=== PATIENT | female | born 1995 | race Two or more races ===

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

== ENCOUNTER 2017-03-16 17:01 | Emergency (ER) | payer MEDICAID ==
[~2017-03-16] VITALS: Ht 157.5 cm; Wt 45.4 kg
[2017-03-16 18:37] LABS: Basophils # (auto) 0 uL; Eosinophils # (auto) 0 uL; Hemoglobin 11.7 g/dL (12.2-16.2); Monocytes # (auto) 1.2 uL; Neutrophils # (auto) 12.2 uL
[2017-03-16 18:39] LABS: Basophils % (auto) 0.1 % (0.0-2.0); Hematocrit 35.3 % (36.0-46.0); Lymphocytes # (auto) 1.3 uL; Lymphocytes % (auto) 8.6 % (10.0-50.0); Mean Corpuscular Hemoglobin 27.1 pg (28.0-32.0); Mean Corpuscular Hgb Conc. 33.1 g/dL (32.0-36.0); Mean Corpuscular Volume 81.7 fL (80.0-100.0); Mean Platelet Volume 8.3 fL (6.9-10.8); Monocytes % (auto) 8.2 % (0.0-12.0); Neutrophils % (auto) 83.1 % (37.0-80.0); Platelet Count (auto) 288 10^3/uL (140-450); Red Cell Distribution Width 14.5 % (11.8-14.3); White Blood Cell 14.7 10^3/uL (4.4-10.8)
[2017-03-16 19:02] LABS: BUN/Creatinine Ratio 14.4; Potassium 3.2 mmol/L (3.5-5.1)
[2017-03-16] MEDS ORDERED: SODIUM CHLORIDE 0.9% 1,000 ML IV ONE (23:45)
[2017-03-16] MEDS ORDERED: HYDROmorphone HCL 2 MG/ML VL IV ONE (23:45)
[2017-03-16] MEDS ORDERED: ONDANSETRON HCL 4 MG/2 ML VIAL IV ONE (23:45)
[2017-03-17] MEDS ORDERED: cefTRIAXone 1GM/50ML D5W 50 ML IV ONE (01:30)
[2017-03-17] MEDS ORDERED: HYDROmorphone HCL 2 MG/ML VL IV ONE (01:30)
[2017-03-17] MEDS ORDERED: ONDANSETRON HCL 4 MG/2 ML VIAL IV ONE (01:30)
[2017-03-17] MEDS ORDERED: SODIUM CHLORIDE 0.9% 1,000 ML IV ONE (01:30)
[2017-03-17 01:34] LABS: Urine Bilirubin Negative (Negative); Urine Blood 2+ /uL (Negative); Urine Color Yellow (Yellow); Urine Glucose Normal (Normal); Urine Ketone 1+ (Negative); Urine Mucus FEW (None Seen); Urine Nitrite Negative (Negative); Urine RBC 34 /hpf (0 - 4); Urine Squamous Epithelial Cell MOD /hpf (<5); Urine WBC Clumps PRESENT /hpf (None Seen)
[2017-03-17 02:57] VITALS: BP 95/54
== END 2017-03-17 03:00 | disposition home or self-care (01) ==
LOC: ER 17:01
DX: N20.0 Calculus of kidney (principal); N39.0 Urinary tract infection, site not specified
CPT/HCPCS: 36415; 74176; 80048; 81001; 84702; 85025; 96361; 96365; 96375; 96376; 99285; J0696; J1170; J2405; J7030

== ENCOUNTER 2017-03-20 22:48 | Emergency (ER) | payer MEDICAID ==
[~2017-03-20] VITALS: Ht 157.5 cm; Wt 45.4 kg
[2017-03-20 23:05] VITALS: BP 115/62
[2017-03-20 23:33] LABS: Urine Bilirubin Negative (Negative); Urine Blood 1+ /uL (Negative); Urine Color Yellow (Yellow); Urine Glucose Normal (Normal); Urine Ketone Negative (Negative); Urine Mucus FEW (None Seen); Urine Nitrite Negative (Negative); Urine RBC 5 /hpf (0 - 4); Urine Squamous Epithelial Cell MOD /hpf (<5); Urine Urobilinogen Normal (Negative)
[2017-03-20 23:52] LABS: Basophils # (auto) 0 uL; Eosinophils # (auto) 0.1 uL; Hemoglobin 10.7 g/dL (12.2-16.2); Mean Platelet Volume 7.6 fL (6.9-10.8)
[2017-03-20 23:54] LABS: Basophils % (auto) 0.1 % (0.0-2.0); Eosinophils % (auto) 0.5 % (0.0-7.0); Hematocrit 33.5 % (36.0-46.0); Lymphocytes # (auto) 1.5 uL; Lymphocytes % (auto) 10.7 % (10.0-50.0); Mean Corpuscular Hemoglobin 26.2 pg (28.0-32.0); Mean Corpuscular Hgb Conc. 32.1 g/dL (32.0-36.0); Mean Corpuscular Volume 81.6 fL (80.0-100.0); Monocytes # (auto) 0.5 uL; Monocytes % (auto) 3.8 % (0.0-12.0); Neutrophils % (auto) 84.9 % (37.0-80.0); Platelet Count (auto) 282 10^3/uL (140-450); Red Cell Distribution Width 14.5 % (11.8-14.3); White Blood Cell 14.1 10^3/uL (4.4-10.8)
[2017-03-21 00:13] LABS: BUN/Creatinine Ratio 8.8; Calcium 8.7 mg/dL (8.5-10.1); Potassium 3.6 mmol/L (3.5-5.1)
[2017-03-21] MEDS ORDERED: HYDROmorphone HCL 2 MG/ML VL IV ONE (00:30)
[2017-03-21] MEDS ORDERED: SODIUM CHLORIDE 0.9% 1,000 ML IV ONE ×2 (00:30→02:15)
[2017-03-21] MEDS ORDERED: ONDANSETRON HCL 4 MG/2 ML VIAL IV ONE (00:30)
[2017-03-21] MEDS ORDERED: MAGNESIUM CITRATE SOLUTION 300 ML BTL PO ONE (01:45)
[2017-03-21] MEDS ORDERED: LACTULOSE 20Gm/30ML SOLN PO ONE (01:45)
== END 2017-03-21 03:13 | disposition home or self-care (01) ==
LOC: ER 22:51
DX: K59.00 Constipation, unspecified (principal); D72.829 Elevated white blood cell count, unspecified; Z87.442 Personal history of urinary calculi
CPT/HCPCS: 36415; 74176; 80048; 81001; 81025; 83690; 84702; 85025; 96361; 96374; 96375; 99285; J1170; J2405; J7030

== ENCOUNTER 2018-05-21 12:35 | Observation (INO) | payer MEDICAID ==
[~2018-05-21] VITALS: Ht 30.5 cm; Wt 0.5 kg
[2018-05-21] MEDS ORDERED: LACTATED RINGER'S 1,000 ML IV SCH (13:20)
[2018-05-21] MEDS ORDERED: PREN-153 OR (13:25)
[2018-05-21] MEDS ORDERED: TERBUTALINE SULFATE 1 MG/ML 1ML VIAL SC ONE ×2 (13:28→13:30)
[2018-05-21] MEDS ORDERED: TERBUTALINE SULFATE 1 MG/ML 1ML VIAL SC SCH (13:30)
== END 2018-05-21 15:00 | disposition home or self-care (01) | DRG 566 ==
LOC: LDRP 12:35
PROVIDERS: ADMIT Obstetrics & Gynecology; ATTEND Obstetrics & Gynecology
DX: O26.892 Other specified pregnancy related conditions, second trimester (principal); R50.9 Fever, unspecified; R10.30 Lower abdominal pain, unspecified; R19.7 Diarrhea, unspecified; O21.2 Late vomiting of pregnancy; Z3A.25 25 weeks gestation of pregnancy
CPT/HCPCS: 59025; 81002; 96360; 96372; G0378; J3105; 96366

== ENCOUNTER 2020-11-29 21:09 | Emergency (ER) | payer MEDICAID ==
[~2020-11-29] VITALS: Ht 157.5 cm; Wt 59.0 kg
[~2020-11-29 21:09] MED LIST changes: +PREN1TAB71 OR
[2020-11-29 23:58] LABS: Basophils # (auto) 0 10 ^3/uL (0-0.2); Basophils % (auto) 0.2 % (0.0-2.0); Eosinophils # (auto) 0 10 ^3/uL (0-0.8); Hematocrit 38.3 % (36.0-46.0); Lymphocytes # (auto) 1.5 10 ^3/uL (0.4-5.4); Mean Corpuscular Hemoglobin 28.2 pg (28.0-32.0); Monocytes # (auto) 0.6 10 ^3/uL (0-1.3); Monocytes % (auto) 6.5 % (0.0-12.0); Neutrophils # (auto) 7.2 10 ^3/uL (1.6-8.6); Neutrophils % (auto) 77.3 % (37.0-80.0); Red Blood Cells 4.61 10^6/uL (4.0-5.20); Red Cell Distribution Width 13.9 % (11.8-14.3); White Blood Cell 9.4 10^3/uL (4.4-10.8)
[2020-11-30 00:18] LABS: Calcium 8.2 mg/dL (8.5-10.1); Potassium 3.5 mmol/L (3.5-5.1)
[2020-11-30 00:21] LABS: Albumin 3.6 g/dL (3.4-5.0); BUN/Creatinine Ratio 8.1
[2020-11-30 00:24] LABS: Bilirubin, Total 0.2 mg/dL (0.2-1.0); Total Protein 8.3 g/dL (6.4-8.2)
[2020-11-30 05:08] LABS: Urine Bacteria FEW /hpf (None Seen); Urine Blood 1+ /uL (Negative); Urine Mucus FEW (None Seen); Urine Specific Gravity 1.021 (1.001-1.035); Urine WBC 3 /hpf (0 - 5)
[2020-11-30 05:50] VITALS: BP 115/78
== END 2020-11-30 06:00 | disposition home or self-care (01) ==
LOC: ER 21:09
DX: N39.0 Urinary tract infection, site not specified (principal); R10.33 Periumbilical pain; Z98.890 Other specified postprocedural states; Z79.899 Other long term (current) drug therapy
CPT/HCPCS: 36415; 80053; 81001; 83690; 84702; 85025

== ENCOUNTER 2020-12-02 17:10 | Emergency (ER) | payer MEDICAID ==
[~2020-12-02] VITALS: Ht 154.9 cm; Wt 59.0 kg
[2020-12-02] MEDS ORDERED: ACETAMINOPHEN 325 MG TAB PO ONE (17:30)
[2020-12-02 21:33] VITALS: BP 132/82
== END 2020-12-03 00:47 | disposition home or self-care (01) ==
LOC: ER 17:10
DX: U07.1 COVID-19 (principal); J12.82 Pneumonia due to coronavirus disease 2019
CPT/HCPCS: 71045

== ENCOUNTER 2021-12-16 06:30 | Emergency (ER) | payer MEDICAID ==
[~2021-12-16] VITALS: Ht 157.5 cm; Wt 58.2 kg
[2021-12-16 09:40] LABS: Basophils # (auto) 0 10 ^3/uL (0-0.2); Basophils % (auto) 0.3 % (0.0-2.0); Eosinophils # (auto) 0.1 10 ^3/uL (0-0.8); Eosinophils % (auto) 1.2 % (0.0-7.0); Hematocrit 40.6 % (36.0-46.0); Hemoglobin 13.3 g/dL (12.2-16.2); Lymphocytes % (auto) 35.2 % (10.0-50.0); Mean Corpuscular Hgb Conc. 32.8 g/dL (32.0-36.0); Mean Corpuscular Volume 85.4 fL (80.0-100.0); Monocytes # (auto) 0.4 10 ^3/uL (0-1.3); Monocytes % (auto) 4.3 % (0.0-12.0); Nucleated Red Blood Cells % 0.1 %; Red Blood Cells 4.75 10^6/uL (4.0-5.20); Red Cell Distribution Width 12.7 % (11.8-14.3); White Blood Cell 8.4 10^3/uL (4.4-10.8)
[2021-12-16 09:58] LABS: Albumin 3.5 g/dL (3.4-5.0)
[2021-12-16 10:01] LABS: BUN/Creatinine Ratio 15.4; Bilirubin, Total 0.2 mg/dL (0.2-1.0); Total Protein 8.2 g/dL (6.4-8.2)
[2021-12-16 10:41] LABS: Urine Bacteria FEW /hpf (None Seen); Urine Blood 3+ /uL (Negative); Urine Specific Gravity 1.014 (1.001-1.035); Urine Sperm PRESENT /hpf (None Seen); Urine WBC 15 /hpf (0 - 5)
[2021-12-16] MEDS ORDERED: METO-281 PO (11:25)
[2021-12-16] MEDS ORDERED: CIPR-173 PO (11:25)
[2021-12-16] MEDS ORDERED: TRAM50TA2 PO (11:25)
[2021-12-16 11:46] VITALS: BP 106/68
== END 2021-12-16 11:56 | disposition home or self-care (01) ==
LOC: ER 06:30
DX: K80.20 Calculus of gallbladder without cholecystitis without obstruction (principal); N39.0 Urinary tract infection, site not specified; Z79.2 Long term (current) use of antibiotics; Z79.899 Other long term (current) drug therapy
CPT/HCPCS: 36415; 80053; 81001; 85025

== ENCOUNTER 2022-12-07 16:21 | Emergency (ER) | payer MEDICAID ==
[~2022-12-07] VITALS: Ht 157.5 cm; Wt 65.1 kg
[~2022-12-07 16:21] MED LIST changes: +CIPR-173 PO; +METO-281 PO; +TRAM50TA2 PO
[2022-12-07 16:29] VITALS: BP 123/57; PULSE 94; RESP 20
[2022-12-07] MEDS ORDERED: ACET-1080 PO (17:07)
[2022-12-07 17:40] VITALS: O2SAT 98
== END 2022-12-07 17:42 | disposition home or self-care (01) ==
LOC: ER 16:23
DX: S93.402A Sprain of unspecified ligament of left ankle, initial encounter (principal); F32.9 Major depressive disorder, single episode, unspecified; Z79.899 Other long term (current) drug therapy; Z87.442 Personal history of urinary calculi; Z98.890 Other specified postprocedural states; X50.1XXA Overexertion from prolonged static or awkward postures, initial encounter; Y93.89 Activity, other specified; Y92.89 Other specified places as the place of occurrence of the external cause; Y99.8 Other external cause status